=== PATIENT | male | born 1975 | race Hispanic/Latino ===

== ENCOUNTER → 2021-04-16 | Outpatient (CLI) | payer BC ==
[2021-04-16 16:08] LABS: BILIRUBIN,DIRECT 0.2 mg/dL (0.0-0.5)
== END ==
LOC: LAB 15:36
PROVIDERS: ATTEND Podiatrist Foot & Ankle Surgery
DX: B35.1 Tinea unguium (principal)
CPT/HCPCS: 36415; 80076